=== PATIENT | female | born 1955 | race Two or more races ===

== ENCOUNTER 2017-09-20 09:27 | Emergency (ER) | payer BC ==
[~2017-09-20] VITALS: Ht 144.8 cm; Wt 52.0 kg
[~2017-09-20 09:27] MED LIST: CLAR250T; MEDROL DOSE PACK
[2017-09-20] MEDS ORDERED: ACETAMINOPHEN 500 MG TABLET ONE (10:58)
[2017-09-20] MEDS ORDERED: ACETAMINOPHEN 500 MG TABLET PO ONE (11:00)
[2017-09-20 11:34] LABS: BASOPHILS # (AUTO) 0.01 x10^3/uL (0-0.1); BASOPHILS % (AUTO) 0 % (0-1); EOSINOPHILS # (AUTO) 0.04 x10^3/uL (0-0.4); EOSINOPHILS % (AUTO) 0 % (1-7); LYMPHOCYTES # (AUTO) 1.31 x10^3/uL (1-3.4); LYMPHOCYTES % (AUTO) 13 % (22-44); MD NO; MEAN CORPUSCULAR HEMOGLOBIN 31.1 pg (27.0-34.8); MEAN CORPUSCULAR HGB CONC 33.8 g/dL (32.4-35.8); MEAN CORPUSCULAR VOLUME 92.1 fL (80-100); MEAN PLATELET VOLUME 8.8 fL (7.4-10.4); MONOCYTES # (AUTO) 0.46 x10^3/uL (0.2-0.8); MONOCYTES % (AUTO) 5 % (2-9); NEUTROPHILS # (AUTO) 8.23 x10^3/uL (1.8-6.8); NEUTROPHILS % (AUTO) 82 % (42-75); PLATELET COUNT 255 x10^3/uL (130-400); RED BLOOD COUNT 4.61 x10^6/uL (3.82-5.3); RED CELL DISTRIBUTION WIDTH 13.7 % (9.6-15.2)
[2017-09-20 11:44] LABS: ALBUMIN 4.2 g/dL (3.4-5.0); ANION GAP 10 mmol/L (5-15); CHLORIDE 102 mmol/L (98-107); CREATININE 0.78 mg/dL (0.55-1.02)
[2017-09-20] MEDS ORDERED: KETOROLAC 30 MG/1 ML IVPush ONE (12:30)
[2017-09-20] MEDS ORDERED: KETOROLAC 30 MG/1 ML ONE (12:38)
[2017-09-20 12:49] VITALS: BP 115/67
[2017-09-20 13:01] LABS: MICROSCOPIC INDICATED
[2017-09-20 13:34] LABS: CULTURE INDICATED? NO
== END 2017-09-20 13:08 | disposition home or self-care (01) ==
LOC: ED 13:00
DX: J02.8 Acute pharyngitis due to other specified organisms (principal); B97.89 Other viral agents as the cause of diseases classified elsewhere; Z90.710 Acquired absence of both cervix and uterus
CPT/HCPCS: 36415; 71046; 80048; 81001; 82040; 83605; 85025; 87040; 93005; 96374; 99285; J1885

== ENCOUNTER 2019-03-03 14:27 | Emergency (ER) | payer OTHER ==
[~2019-03-03] VITALS: Ht 144.8 cm; Wt 53.1 kg
[~2019-03-03 14:27] MED LIST changes: -CLAR250T; +[UNRECOGNIZED DRUG - CODE]
[2019-03-03 14:28] VITALS: BP 153/69
--- NOTE | 2019-03-03 14:34 | NUR ---
C-COLLAR APPLIED IN TRIAGE. PT AMBULATORY TO ED ROOM 31 ACCOMPANIED BY DAUGHTER.
[2019-03-03] MEDS ORDERED: IBUPROFEN 200 MG TABLET PO ONE (15:00)
--- NOTE | 2019-03-03 15:30 | NUR ---
REPORT RECEIVED FROM CHAO SILVERMAN. CARE ASSUMED. PT RESTING IN [facility], RADIOLOGY COMPLETED. DAUGHTER AT BEDSIDE. PT ON ROOM AIR, NAD, AAO X 4, ON MONITOR, CALL LIGHT WITHIN REACH.
--- NOTE | 2019-03-03 15:51 | NUR ---
Patient/Caregiver given discharge instructions and they have confirmed that they understand the instructions. Patient ambulatory with steady gait.
== END 2019-03-03 15:54 | disposition home or self-care (01) ==
LOC: ED 15:27
DX: S39.012A Strain of muscle, fascia and tendon of lower back, initial encounter (principal); Z90.710 Acquired absence of both cervix and uterus; V49.49XA Driver injured in collision with other motor vehicles in traffic accident, initial encounter; Y93.89 Activity, other specified; Y92.410 Unspecified street and highway as the place of occurrence of the external cause; Y99.8 Other external cause status
CPT/HCPCS: 72110; 99283